=== PATIENT | male | born 1990 | race Caucasian/White ===

== ENCOUNTER 2016-05-27 19:56 | Emergency (ER) | payer BC, OTHER ==
[~2016-05-27] VITALS: Ht 177.8 cm; Wt 77.4 kg
[~2016-05-27 19:56] MED LIST: PRED20TA PO
[2016-05-27 19:58] VITALS: TEMP 37; Ht 177.8 cm; Wt 77.4 kg
--- NOTE | 2016-05-27 20:33 | DIAGNOSTIC IMAGING REPORT ---
LEFT FIFTH FINGER 3 VIEWS HISTORY: LEFT 5th injury w/ deformity COMPARISON: None. FINDINGS: Dorsal dislocation at the PIP joint with 4 mm of overlap. Soft tissue swelling at the PIP joint. No fractures identified. No radiopaque foreign bodies. IMPRESSION: Dorsal dislocation at the PIP joint of the left fifth finger. Electronically signed by: Jerry Hartmann M.D. 05/27/2016 8:32 PM Dictated Date/Time: 05/27/2016 8:31 PM
[2016-05-27] MEDS ORDERED: ACETAMINOPHEN 500 MG TAB PO STA (20:49)
--- NOTE | 2016-05-27 20:51 | DIAGNOSTIC IMAGING REPORT ---
LEFT FIFTH FINGER 3 VIEWS HISTORY: post reduction - LEFT 5th COMPARISON: None. FINDINGS: There is no fracture or dislocation. Soft tissue swelling at the PIP joint. No radiopaque foreign bodies. IMPRESSION: Interval reduction of the left fifth finger PIP joint dislocation. The alignment is anatomic. Electronically signed by: Jerry Hartmann M.D. 05/27/2016 8:50 PM Dictated Date/Time: 05/27/2016 8:49 PM
--- NOTE | 2016-05-27 20:52 | EMERGENCY ROOM VISIT NOTE ---
ED Visit Note First contact with patient: 20:01 Chief Complaint: Broken LEFT Pinky History of Present Illness: Patient is a 25-year-old male who presents to the emergency department today for evaluation of possibly broken LEFT fifth digit. He reports that while attempting to put his dog in a crate, he accidentally jammed his finger. He reports immediate pain and deformity. He reports decreased range of motion secondary to discomfort. He reports some tingling to the tip of the finger. He denies any history of fracture or injury to the affected area. He rates his current discomfort as a 7/10. Patient denies any associated hand pain, wrist pain, or forearm pain. Medications: Reviewed and discussed with the patient. Allergies: Ibuprofen, nonsteroidals, sulfa drugs PMH: No pertinent past medical history. SHx: Patient is a 25-year-old male who lives locally. ROS: All pertinent positive and negative review of systems are appropriately documented in the History of Present Illness. Physical Exam: VITAL SIGNS - Vital signs and nursing notes were reviewed. GENERAL - 25-year-old male appearing his stated age and in noticeable discomfort throughout the exam. MUSCULOSKELETAL -deformity noted to the LEFT 5th PIP joint. Moderate tenderness to palpation appreciated to the PIP. Active ROM of the LEFT 5th finger was limited in all. Palpable deformities to the PIP. No tenderness over the MCP joint. No tenderness extending into the carpals. No point-tenderness over the anatomic snuffbox. NEUROLOGIC - SENSORY: Spinothalamic tract was found to be intact with ability to discriminate sharp versus dull sensation at the level of the LEFT elbow down to the fingertips. No sensory deficits of the dorsal column were appreciated utilizing light touch for evaluation. VASCULAR - Capillary refill was brisk. +3/5 radial pulse palpated. IMAGING: LEFT FIFTH FINGER 3 VIEWS HISTORY: LEFT 5th injury w/ deformity COMPARISON: None. FINDINGS: Dorsal dislocation at the PIP joint with 4 mm of overlap. Soft tissue swelling at the PIP joint. No fractures identified. No radiopaque foreign bodies. IMPRESSION: Dorsal dislocation at the PIP joint of the left fifth finger. LEFT FIFTH FINGER 3 VIEWS HISTORY: post reduction - LEFT 5th COMPARISON: None. FINDINGS: There is no fracture or dislocation. Soft tissue swelling at the PIP joint. No radiopaque foreign bodies. IMPRESSION: Interval reduction of the left fifth finger PIP joint dislocation. The alignment is anatomic. ED Course: Patient was seen and evaluated by myself. X-ray was obtained of the affected finger. Imaging results above. I did discuss the patient closed reduction using local anesthesia with digital block versus without. He elects to have reduction performed without digital block. Close reduction was easily performed with traction. Postreduction films demonstrated anatomic line. The patient was placed in a finger splint for comfort. He was educated on following up with his primary care provider from today's visit. He was educated on worrisome symptoms for return visit to the emergency department. Patient discharged home in good condition. In the evaluation and treatment of this patient, the following differential diagnoses were considered: Finger Fracture, Finger Dislocation, Finger Sprain, Finger Contusion, Jersey Finger, or Mallet Finger. Impression: LEFT 5th Digit PIP Dislocation - Reduced Discharge Instructions: You've been seen in the emergency department today for a finger dislocation. Please wear the splint for comfort for the next week. Ice the area for comfort. Tylenol as needed for pain. Follow-up with orthopedic surgery for any returning or changing symptoms. Return for any changing or worsening symptoms. Current/Historical Medications No Active Prescriptions or Reported Meds Allergies Coded Allergies: Ibuprofen (Unverified Allergy, Mild, 05/27/16) Sulfa Drugs (Verified Allergy, Unknown, 05/27/16) Uncoded Allergies: NONSTEROIDAL (Allergy, Unknown, 04/18/09) Vital Signs Date Time Temp Pulse Resp B/P Pulse Ox O2 Delivery O2 Flow Rate FiO2 05/27/16 21:08 63 16 119/69 99 05/27/16 19:58 37.0 115 18 129/79 100 Room Air Medications Administered Medications (Trade) Dose Ordered Sig/Demario Route Start Time Stop Time Status Last Admin Dose Admin Acetaminophen (Tylenol Tab) 1,000 mg NOW STAT PO 05/27/16 20:49 05/27/16 20:50 DC 05/27/16 20:49 1,000 MG Departure Information Impression Primary Impression: Finger dislocation Dispostion Home / Self-Care Condition GOOD Prescriptions No Active Prescriptions or Reported Meds Referrals Alex Berumen M.D. (PCP) Patient Instructions ED Dislocation Finger Ch, My [facility] Additional Instructions You've been seen in the emergency department today for a finger dislocation. Please wear the splint for comfort for the next week. Ice the area for comfort. Tylenol as needed for pain. Follow-up with orthopedic surgery for any returning or changing symptoms. Return for any changing or worsening symptoms. Problem Qualifiers Primary Impression: Finger dislocation Encounter type: initial encounter Qualified Codes: S63.259A - Unspecified dislocation of unspecified finger, initial encounter
[2016-05-27 21:08] VITALS: BP 119/69; PULSE 63; O2SAT 99
== END 2016-05-27 21:09 | disposition home or self-care (01) ==
LOC: C.EDB 19:58 → C.EDD 21:09
DX: S63.287A Dislocation of proximal interphalangeal joint of left little finger, initial encounter (principal); W23.0XXA Caught, crushed, jammed, or pinched between moving objects, initial encounter